=== PATIENT | male | born 1970 | race Caucasian/White ===

== ENCOUNTER 2019-06-19 12:55 | Day surgery (SDC) | payer BC ==
[~2019-06-19] VITALS: Ht 177.8 cm; Wt 91.6 kg
[~2019-06-19 12:55] MED LIST: ZYRTEC10 M3 PO
--- NOTE | 2019-06-19 14:19 | NUR ---
06/19/19 1419 Kasie Brown 1411 PT ARRIVED TO PACU TALKING TO RN, PT DENIES PAIN. PT REPROTS SMALL AMOUNT OF NAUSEA. VSS. PT RESTING BACK IN BED AND FLUIDS INCREASED. PLAN OF CARE DISCUSSED. 1418 PT FALLS BACK TO SLEEP AND SMALL AMOUNT OF SNORING NOTED.
--- NOTE | 2019-06-20 13:38 | OR ---
[facility] [address] [place], [place] [address] Signed DATE OF OPERATION: 06/19/2019 SURGEON: Robby Jordan MD PREOPERATIVE DIAGNOSIS: Colon screening. POSTOPERATIVE DIAGNOSIS: Polyps x2. PROCEDURES PERFORMED: Total colonoscopy to cecum with hot snare polypectomy x1 and cold morcellation polypectomy x1. ANESTHESIA: Intravenous sedation, fentanyl 150 mcg, Versed 9 mg. INDICATIONS: This 48-year-old white man is patient of Dr. Jacobo of [place], [place]. The patient lives in [place], [place]. The patient is referred for colon screening based on his age. He has no family history of colon cancer and no symptoms of bleeding, diarrhea, or constipation. He understands the risks of bleeding, infection, and perforation related to colonoscopy and wished to proceed. FINDINGS: The prep was excellent. Complete colonoscopy was undertaken of the cecum without question. He had 2 small polyps, one in the rectosigmoid, the other in the left colon. Both were excised completely. There were no other findings of concern. DESCRIPTION OF PROCEDURE: The patient was brought to the endoscopy suite and placed in lateral decubitus position, given intravenous sedation to the point of slurred speech and nystagmus. Digital rectal examination was normal. An Olympus video colonoscope was passed in the rectum and manipulated throughout the colon ultimately intubating the cecum itself. The ileocecal valve and appendiceal orifice were normal. The scope was withdrawn from that point and examination throughout showed no sign of abnormality into the mid descending colon, where a sessile polyp was noted, this was excised with hot snare polypectomy technique. The scope was further withdrawn. In the rectosigmoid, there was a small polyp, this was excised with cold Electronically Signed By: ROBBY JORDAN MD 06/20/19 1338 PATIENT NAME: ELISEO CROOKS OPERATIVE REPORT DATE OF : 66 REPORT #: [id number] PHYSICIAN: ROBBY JORDAN MD PCP: BELKIS JACOBO DO REPORT IS CONFIDENTIAL AND NOT TO BE RELEASED WITHOUT AUTHORIZATION [facility] [address] [place], [place] [address] Signed morcellation technique. Withdrawal of scope to the rectum showed no other abnormality. The scope was removed and the patient was taken to recovery room in good condition. CONCLUDING DIAGNOSIS: Polyps x2. PLAN: Recommend repeat colonoscopy in 3 years, sooner if clinically indicated. He will return to the ongoing care of Dr. Jacobo otherwise. MD ROGER Cleveland/TEODORAL /[id number] cc: Dr. Jacobo [facility] Copies: ~ Electronically Signed By: ROBBY JORDAN MD 06/20/19 1338 PATIENT NAME: ELISEO CROOKS OPERATIVE REPORT DATE OF : 66 REPORT #: [id number] PHYSICIAN: ROBBY JORDAN MD PCP: BELKIS JACOBO DO REPORT IS CONFIDENTIAL AND NOT TO BE RELEASED WITHOUT AUTHORIZATION
--- NOTE | 2019-06-25 13:50 | PATH ---
[facility] [address] [place], [place] [address] Signed SPECIMEN(S): A TRANSVERSE POLYP SPECIMEN(S): B SIGMOID POLYP SPECIMEN SOURCE: A. TRANSVERSE POLYP B. SIGMOID POLYP CLINICAL HISTORY: Screening. Post: Polyp x 2. MICROSCOPIC DESCRIPTION: Histologic sections of all submitted blocks are examined by light microscopy. These findings, together with the gross examination, support the pathologic diagnosis. FINAL PATHOLOGIC DIAGNOSIS: A. Mucosa, transverse colon, biopsy: - Inflammatory pseudopolyp (See comment). B. 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 - Arising in tubular adenoma. COMMENT: A Multiple levels over three slides are examined. The epithelial surface is focally denuded, and the lamina propria is expanded by small to moderate numbers of acute and chronic inflammatory cells. No adenomatous or hyperplastic change is seen. B As part of [email or web address] quality control auditor program this case has been reviewed by another member of our pathology staff. No neoplasm is left in sample for microsatellite instability testing. Results called to Dr. Sen's office (Sheri) 06/25/19 1:15 PM. KUNAL:cml:C2NR GROSS DESCRIPTION: Two specimens are received in two containers, labeled "RR." A. The specimen, labeled "RR, transverse colon polyp," is received in formalin and consists of a single 0.3 cm, rosenberg tissue fragment. The specimen is entirely submitted in cassette (A1). B. The specimen, labeled "RR, sigmoid colon polyp," is received in formalin and consists of a single 0.6 cm, brown-red, polypoid nodule. The specimen is entirely submitted in cassette (B1). AM (under the direct supervision of a pathologist) PATIENT NAME: ELISEO CROOKS PATHOLOGY DATE OF : 66 REPORT #: [id number] PHYSICIAN: CLIVE PATHOLOGY PCP: BELKIS JACOBO DO REPORT IS CONFIDENTIAL AND NOT TO BE RELEASED WITHOUT AUTHORIZATION [facility] [address] [place] [address] Signed The Gross Description was prepared using a voice recognition system. The report was reviewed for accuracy; however, sound-alike word errors, addition and/or deletions may occur. If there is any question about this report, please contact Client Services. PERFORMING LABORATORY: The technical component was performed by [address] [address] (Professor Of Chemical Engineering: Mindy Rock MD; CLIA# [id number]). Professional interpretation was performed by [facility], [address] [address] (Professor Of Chemical Engineering: Darrell Wiseman MD; CLIA# [id number]). Diagnostician: Darrell Wiseman MD Pathologist Electronically Signed 06/25/2019 Copies: ~ PATIENT NAME: RANGER,ELISEO R PATHOLOGY DATE OF : 66 REPORT #: [id number] PHYSICIAN: CLIVE SYED PCP: BELKIS JACOBO DO REPORT IS CONFIDENTIAL AND NOT TO BE RELEASED WITHOUT AUTHORIZATION
== END 2019-06-19 14:57 | disposition home or self-care (01) ==
LOC: OPS 12:55 → DS 14:00 → OPS 14:57
PROVIDERS: Surgery
PROC: 0DBL8ZZ Excision of Transverse Colon, Via Natural or Artificial Opening Endoscopic (ICD-10-PCS; 2019-06-19)
PROC: 0DBN8ZZ Excision of Sigmoid Colon, Via Natural or Artificial Opening Endoscopic (ICD-10-PCS; principal; 2019-06-19 14:00)
DX: Z12.11 Encounter for screening for malignant neoplasm of colon (principal); D12.5 Benign neoplasm of sigmoid colon; K51.40 Inflammatory polyps of colon without complications; J32.9 Chronic sinusitis, unspecified; J34.2 Deviated nasal septum; R06.83 Snoring
CPT/HCPCS: 99153; G0500; J2250; J3010; J7121

== ENCOUNTER 2019-07-19 09:36 | Inpatient (IN) | payer BC ==
[~2019-07-19] VITALS: Ht 177.8 cm; Wt 91.6 kg
--- NOTE | ~2019-07-19 | DS ---
[facility] [address] [place], [place] [address] Draft ADMISSION DATE: 07/23/2019 DISCHARGE DATE: 07/27/2019 REASON FOR ADMISSION: This 48-year-old white man is a patient of Dr. Hemalatha Perkins, and underwent screening colonoscopy by me a month prior to current admission. He was found to have two polyps, one in the sigmoid, which was excised with snare polypectomy technique showing invasive adenocarcinoma into the submucosa. He was admitted at this time to undergo sigmoid resection. PHYSICAL EXAMINATION: GENERAL: A healthy-appearing white man, in no distress. CHEST: Clear. HEART: Regular rate and rhythm without murmur. ABDOMEN: Soft without tenderness. EXTREMITIES: Without clubbing or cyanosis or edema. CEA of 1.1. HOSPITAL COURSE: On July 23, 2019, he underwent anterior resection of the colon including sigmoid and proximal rectum with side-to-end coloproctostomy. Colonoscopy was performed prior to the procedure, that did not easily showed the area of prior resection. Endo toni tattoo dye was applied to an area where a small polyp was additionally noted. Uncertain if this represented residual of the polyp excised or not. I had reviewed the slides of the resected polyp with Dr. Richardson, the pathologist, prior to operation. The operation went without problem. Postoperatively, he was begun on a clear liquid diet, maintained on intravenous medication, dominantly, Tylenol and Toradol with some amount of Dilaudid as needed. A TAP block was placed perioperatively as well. He had progressive improvement and was advanced in his diet promptly and by day of discharge, he was ambulating well and tolerating a regular diet. He has had regular bowel movements. A drain that was placed in the pelvis was removed today prior to discharge. His discharge medication will be opiate free. He wishes only to use Tylenol 1000 mg p.o. q.6 hours as needed for pain and Motrin 600 mg p.o. q.6 hours as needed for pain. PATIENT NAME: ELISEO CROOKS DISCHARGE SUMMARY DATE OF : 66 REPORT #: [id number] PHYSICIAN: ROBBY JORDAN MD PCP: BELKIS JACOBO DO REPORT IS CONFIDENTIAL AND NOT TO BE RELEASED WITHOUT AUTHORIZATION [facility] [address] [place] [id number] Draft FOLLOWUP PLANS: He is return to see me in approximately one month. Of special note, his pathology report returned showing 12 lymph nodes of the sigmoid mesentery. None of them with metastatic disease. MD ROGER Cleveland/MODL /[id number] cc: Hemalatha Perkins MD Copies: ~ PATIENT NAME: ELISEO CROOKS DISCHARGE SUMMARY DATE OF : 66 REPORT #: [id number] PHYSICIAN: ROBBY JORDAN MD PCP: BELKIS JACOBO DO REPORT IS CONFIDENTIAL AND NOT TO BE RELEASED WITHOUT AUTHORIZATION
--- NOTE | 2019-07-23 15:41 | NUR ---
07/23/19 1541 Daisy Gregory 1531 PT ARRIVED IN PACU NON RESPONSIVE TO NOXIOUS STIMULI WITH OPA IN PLACE. MELENDEZ CATHETER PRESENT ON ARRIVAL WITH RODRIGO COLORED URINE. ABD DRSG INTACT WITH SMALL AMOUNT OF DRAINAGE AND GIULIANO DRAIN.
--- NOTE | 2019-07-23 16:58 | NUR ---
PT ARRIVED TO ROOM 113 VIA HOSPITAL BED AT THIS TIME. PT ALERT AND ORIENTED. REPORT RECEIVED FROM VALET RUNNER. PT ASSESSMENT COMPLETED. PT REPORTS FEELING TIGHT AND GASSY. PT STATES "I JUST GOT TO REST HERE FOR A BIT AND LET THIS PASS" VSS. CALL LIGHT AND H2O IN REACH. NO FURTHER NEEDS OR CONCERNS VOICED.
--- NOTE | 2019-07-23 17:49 | NUR ---
PT reports pain of 6/10 to abdomen. Prn IV Toradol administered per pt request. IVF infusing as ordered. Call light and h2o in reach. No needs or concerns voiced.
--- NOTE | 2019-07-23 19:38 | NUR ---
RECEIVED REPORT FROM DAY SHIFT RN. PATIENT IS RESTING IN BED WATCHING TV VISTING WITH FAMILY. PATIENT DENIES ANY PAIN OR NAUSEA. NO NEEDS NOTED. CALL LIGHT IN REACH.
--- NOTE | 2019-07-23 20:07 | NUR ---
POST OP VITALS COMPLETED. PT WITH GAS PAINS. WILL REPORT TO PRIMARY RN. GIULIANO EMPTIED, DRESSING UNCHANGED FROM BEGINNING OF SHIFT.
--- NOTE | 2019-07-23 20:30 | NUR ---
PATIENT ASSESEMENT COMPLETED. PATIENTS RATES PAIN AT A 8/10. PRN PAIN MEDICATION GIVEN PER ORDER. IV INFUSING PER ORDER. PATIENTS EVENING MEDICATIONS GIVEN PER ORDER. PATIENTS IS PRESENT IN THE ROOM. PATIENT IS RESTING IN BED SCDS IN USE. PATIENT DENIES ANY FURTHER NEEDS. PATIENT DENIES ANY NAUSEA. CALL LIGHT IN REACH.
--- NOTE | 2019-07-23 22:20 | NUR ---
PATIENTS SCHEDULED MEDICATIONS GIVEN PER ORDER. PATIENT UP TO AMBULATE IN THE HALLWAY. PATIENT COMPLETED X3 LAPS. PATIENT IS NOW BACK IN BED RESTING. PATIENT RATES PAIN AT A 5/10. PRN MEDICATION FOR PAIN GIVEN PER ORDER. PATIENTS CHEDULED MEDICATIONS GIVEN. SCDS IN PLACE. NO FURTHER NEEDS NOTED. CALL LIGHT IN REACH.
--- NOTE | 2019-07-23 23:01 | NUR ---
beef broth and avelino vega.
--- NOTE | 2019-07-23 23:44 | NUR ---
PATIENTS SCHEDULED MEDICATIONS GIVEN PER ORDER. PATIENT RATES PAIN AT A 3/10. PATIENT DENIES THE NEED FOR ANY MEDICATION AT THIS TIME. PATIENT DENIES ANY NAUSEA. PATIENT DENIES ANY NEEDS. CALL LIGHT IN REACH.
--- NOTE | 2019-07-24 01:42 | NUR ---
PATIENT CALLED AN REQUESTED PAIN MEDICATION. PATIENT RATES PAIN AT A 9/10 IN ABD. PATIENTS ABD IS ONLY MILDLY DISTENDED WHICH IS UNCHANGED FROM THE BEGINING OF THE SHIFT. PATIENT GIVEN PRN PAIN MEDICATION PER ORDER. PATIENT DENIES ANY NAUSEA. PATIENTS VITALS TAKEN AND RECORDED. INTAKE AND OUPUT RECORDED. NO FURTHER NEEDS NOTED. CALL LIGHT IN REACH.
--- NOTE | 2019-07-24 03:49 | NUR ---
PATIENT RATES PAIN AT A 9/10. PATIENT ALSO COMPLAINS OF NAUSEA AND IS HOLDING AN EMESIS BAG. PATIENT GIVEN PRN PAIN MEDICATION AND PRN NAUSEA. PATIENT EDUCATED ON MEDICATIONS. PATIENT DENIES ANY FURTHER NEEDS. CALL LIGHT IN REACH.
--- NOTE | 2019-07-24 05:01 | NUR ---
PATIENT RATES PAIN AT A 9/10 IN HIS ABD. NO CHANGES NOTED IN DISTENTION OR BOWEL TONES. PATIENT GIVEN PRN PAIN MEDICATION. PATIENTS SCHEDULED MEDICATION GIVEN PER ORDER. IV INFUSING. NO FURTHER NEEDS NOTED. CALL LIGHT IN REACH.
--- NOTE | 2019-07-24 05:11 | NUR ---
PATIENT HAS NOT BEEN ABLE TO REST DURING THIS SHIFT. PATIENT HAS BEEN PAINFUL AND NAUSEOUS. PATIENT HAS RECEIVED PRN PAIN MEDICATION AND PRN NAUSEA MEDICATION PER ORDER. [facility] PATIENT IS ON A CLEAR LIQUID DIET. PATIENT IS ON RA. PATIENT IS A SBA. PATIENT HAS A MELENDEZ IN PLACE. PATIENT HAS GIULIANO IN LLQ THAT IS HAS SMALL AMOUNTS OF SEROSANGUIOUNS FLUID. CAROTENT HAS MID ABD INCISION THAT HAS A DRESSING IN PLACE THAT HS NOTED DRAINGE THAT HAS BEEN UNCHANGED DURING THIS SHIFT. PATIENT IS AAOX4.
--- NOTE | 2019-07-24 05:53 | NUR ---
PATIENTS VITALS TAKEN AND RECORDED. PATIENTS INTAKE AND OUPUT RECORDED. PATIENT RATES PAIN AT A 5/10. PATIENT STATES PAIN IS GEETTING BETTER. PATIENT DENIES ANY NAUSEA. PATIENTS MORNING MEDICATIONS GIVEN PER ORDER. PATIENT DENIES ANY NEEDS. CALL LIGHT IN REACH.
--- NOTE | 2019-07-24 07:20 | NUR ---
REPORT RECEIVED FROM KYLAH HERNANDEZ. PT AWAKE HE HAS BEEN ALL NIGHT. STATES HE IS A LITTLE NAUSOUS AND HAVING CRAMPING. BT HYPERACTIVE. WOULD LIKE MELENDEZ OUT. WILL CHECK ORDERS AGAIN AND CALL DR JORDAN.
--- NOTE | 2019-07-24 07:57 | NUR ---
PATIENT RESTING IN BED. PATIENT'S HANDS AND FACE CLEANED. CALL LIGHT WITHIN REACH. NO OTHER NEEDS AT THIS TIME
--- NOTE | 2019-07-24 08:56 | OR ---
[facility] [address] [place], [place] [address] Signed DATE OF OPERATION: 07/23/2019 SURGEON: Robby Jordan MD PREOPERATIVE DIAGNOSIS: Malignant sessile polyp of sigmoid with submucosal invasion. POSTOPERATIVE DIAGNOSIS: Malignant sessile polyp of sigmoid with submucosal invasion. PROCEDURES: 1. Colonoscopy beyond splenic flexure with tattoo of sigmoid polypoid area. 2. Anterior resection of colon including sigmoid and proximal rectum with side-to-end coloproctostomy. ANESTHESIA: General endotracheal; Shahla Primitivo, CIVIL ENGINEERING MANAGER, and postoperative TAP block bilateral. INDICATION: This 48-year-old white man is a patient of Dr. Hemalatha Perkins and underwent screening colonoscopy over a month ago. He was found to have two polyps, one in the sigmoid, which was excised with snare polypectomy technique, which showed invasive adenocarcinoma into the submucosa. It was generally a sessile polyp. The various options of management of malignant polyps with invasion to the submucosa were reviewed with the patient, and he opted strongly to undergo resection of the colon to allow for mesenteric dissection in the area affected. The patient and his understand the risks of operation including, but not limited to bleeding, infection, anastomotic leak, and other unforeseen complications including need for additional treatment should malignancy be found in any regional lymph nodes. Understand this, he wished to proceed. Additionally, colonoscopy was anticipated prior to resection to hopefully toni the site of prior polypectomy and decompressed the colon if any remaining bowel prep effluent that may be present. FINDINGS: On colonoscopy, the prep was quite good overall and actual scar or eschar was not identified in the colon though a polyp was noted at the sigmoid, which may be a remnant of the previous excision. This area was marked with Endomark tattoo dye. This did provide guidance as to location for resection in the operative portion of the case. Electronically Signed By: ROBBY JORDAN MD 07/24/19 0856 PATIENT NAME: ELISEO CROOKS OPERATIVE REPORT DATE OF : 66 REPORT #: [id number] PHYSICIAN: ROBBY JORDAN MD PCP: ROVERTO JACOBO DO REPORT IS CONFIDENTIAL AND NOT TO BE RELEASED WITHOUT AUTHORIZATION [facility] [address] [place], [place] [address] Signed As regard to the abdomen, he does have thick abdominal wall pannus and intraabdominal fat, but the colon was well decompressed except for air. Resection of all the sigmoid portion of the left colon and proximal to mid rectum was undertaken with wide mesenteric resection. A side-to-end coloproctostomy was accomplished as well. The liver was palpably normal. Small bowel was normal so far as could be told. DESCRIPTION OF PROCEDURE: The patient was brought to the operating room, given a general endotracheal anesthetic. On the stretcher, he was placed in a lateral position and digital rectal examination was undertaken, which was normal. Olympus video colonoscope was passed in the rectum and manipulated throughout the colon, ultimately passed and beyond the hepatic flexure. The scope was carefully withdrawn from that point and examination undertaken. He was found to have a polypoid lesion in the sigmoid, which looked like an innocuous separate polyp that either was not appreciated or somehow missed on last colonoscopy, but may represent remnant from previous adenocarcinoma. There is certainly no deep eschar or scar that was noted. This area was in the rectosigmoid as was the offending polyp with malignancy invasion into the submucosa and this area was marked with Endomark tattoo dye. Further withdrawal of scope showed no other abnormality in the rectum. The patient was returned to the supine position and transferred to the operative table. Preoperative antibiotic cefoxitin and Flagyl had been given. Sequential compression device stockings were used and heparin subcutaneously administered. The abdomen was clipped and prepared with chlorhexidine solution and draped sterilely after placement of a Brown catheter. An incision was made inferior to the umbilicus extending to above the symphysis pubis initially. His abdominal wall pannus was a bit thicker than I expected probably 3 inches or more. The abdomen was entered and there was fatty mesentery noted as well. The Endomark tattoo was quite readily visible in the rectosigmoid area. Inspection throughout the abdomen showed no sign of ascites or carcinomatosis. No palpable adenopathy or rather thickened sigmoid mesentery. A Bookwalter retractor was attached to table and small bowel was packed superiorly and laterally allowing for good visualization of the mesocolon. The white line of Toldt was mobilized with blunt electrocautery dissection, mobilizing the left colon to the midline. Dissection was carried inferiorly over the pelvic brim, area demarcated as rectum coalescence, teniae was designated as appropriate site for resection. The mesentery was scored extending deeply into the retroperitoneal space. Serial application of tonsil clamps or hemostats were undertaken to secure the vascular pedicles. The major vascular pedicles were secured doubly with 0 silk ties. A PANKAJ stapling device 75 mm in length was used to transect the mid descending colon. There was air remaining from the prior colonoscopy, which was somewhat troublesome and therefore a pursestring suture of 3-0 silk was used on the teniae libera allowed for Electronically Signed By: ROBBY JORDAN MD 07/24/19 0856 PATIENT NAME: ELISEO CROOKS OPERATIVE REPORT DATE OF : 66 REPORT #: [id number] PHYSICIAN: ROBBY JORDAN MD PCP: ROVERTO JACOBO DO REPORT IS CONFIDENTIAL AND NOT TO BE RELEASED WITHOUT AUTHORIZATION [facility] [address] [place], [place] [address] Signed decompression of the insufflated air with angiocatheter. This allowed for easier manipulation of the colon. The mesentery was divided over the sacral promontory inferiorly to the broader base of the mesorectum well beyond the sigmoid proper. Application of hemostats and silk ties was used for vascular control and some clips additionally applied to the rectal mesentery area. Again, there was no sign of palpable adenopathy and the area demarcated as appropriate for anastomosis and the mid to upper rectum was marked with a silk suture. The area was isolated and a right angle bowel clamp was applied to the upper to mid rectum with another clamp above that and the rectal area transected with curved scissors. Plans were then made for anastomosis. A side-to-end coloproctostomy was deemed most advisable. The staple line was oversewn with interrupted 3-0 silk suture. A side-to-end coloproctostomy was then undertaken with a two layer technique of interrupted 3-0 silk suture. Excellent patency to the anastomosis and viability to proximal and distal ends was noted. By then, the specimen had been opened on the back table noting the polypoid lesion either remnant or new polyp of the rectosigmoid with a wide negative margin. A generous mesentery with lymph nodes presumably was also noted. At the conclusion of the anastomosis through a left lower quadrant incision, a 7 mm flat Krishan drain was placed into the pelvis. Mesenteric defect was reapproximated with interrupted 3-0 silk suture. Irrigation was undertaken more fully after changing of gown and gloves that had followed the anastomosis itself. Palpation of the upper abdomen revealed no palpable lesions of the liver or elsewhere. Small bowel and omentum were allowed to return to a natural position anticipating closure of the abdomen. Midline fascia was reapproximated with running bidirectional #1 PDS suture. Subcutaneous tissue was copiously irrigated and skin closed with running subcuticular 3-0 Vicryl. Steri-Strips were applied as was a silver sponge dressing. Gauze was applied to the drain site and left lower quadrant and attached to bulb suction. The patient had approximately 100 mL out. The operative time including colonoscopy and resection was 3 hours or so. Sponge, needle, and counts reported as correct x3. MD ROGER Cleveland/MODL /[id number] Electronically Signed By: ROBBY JORDAN MD 07/24/19 0856 PATIENT NAME: ELISEO CROOKS OPERATIVE REPORT DATE OF : 66 REPORT #: [id number] PHYSICIAN: ROBBY JORDAN MD PCP: ROVERTO JACOBO DO REPORT IS CONFIDENTIAL AND NOT TO BE RELEASED WITHOUT AUTHORIZATION [address] [address] Signed cc: MD Roverto Petty DO Copies: ROVERTO JACOBO DO ~ Electronically Signed By: ROBBY JORDAN MD 07/24/19 0856 PATIENT NAME: ELISEO CROOKS OPERATIVE REPORT DATE OF : 66 REPORT #: [id number] PHYSICIAN: ROBBY JORDAN MD PCP: ROVERTO JACOBO DO REPORT IS CONFIDENTIAL AND NOT TO BE RELEASED WITHOUT AUTHORIZATION
--- NOTE | 2019-07-24 09:10 | NUR ---
ADMINSTERED ZOFRAN FOR SEVERE NAUSEA. OFIRMEV FOR PAIN, TRYING TO HOLD OFF ON DILAUIDID ATT. PT HAD HICCUPS AND IS NOW PAINFUL. WILL REASSESS SHORTLY.
--- NOTE | 2019-07-24 09:19 | NUR ---
REMOVED MELENDEZ PER DR ORDER. PT TOLERATED WELL AND REMOVED STICKER HIMSELF. WILL REASSESS PAIN IN 15MIN.
--- NOTE | 2019-07-24 10:07 | NUR ---
PATIENT RESTING IN BED. RN IN ROOM. VITAL SIGNS AND I&O DONE. CALL LIGHT WITHIN REACH. NO OTHER NEEDS AT THIS TIME
--- NOTE | 2019-07-24 11:03 | NUR ---
pt ambulated 4 laps [address] hallway independently. attempting to avoid gas pains. does report passing gas sometimes. GIULIANO drain emptying sanguinous drainage. linens changed while patient ambulated.
--- NOTE | 2019-07-24 11:11 | NUR ---
PT WALKED IN [place]. STATES HE DID WELL AND PAIN IS MANAGABLE NOW. WOULD LIKE TO TAKE NAP FOR A BIT.
--- NOTE | 2019-07-24 12:25 | NUR ---
In and spoke with Himanshu. He is awake and states he has been walking, trying to pass gas. Wanting to know if he can go home today. Encouraged to stay until he has had bm and is able to eat. He discussed he has LTC insurance and does not need to hurry home. Again discussed not leaving until he feels well and has met goals. States he works for the [employer], is and lives in [place]. Denies use of DME. Denies problems with SDOH.
--- NOTE | 2019-07-24 13:25 | NUR ---
PATIENT RESTING IN BED. VISITOR IN ROOM. VITAL SIGNS AND I&O DONE. CALL LIGHT WITHIN REACH. NO OTHER NEEDS AT THIS TIME
--- NOTE | 2019-07-24 13:48 | NUR ---
PT DID 3 LAPS AROUND THE DEPARTMENT WITH FAMILY. STATES HIS PAIN IS OK RIGHT NOW. SCDS HOOKED BACK UP AND WORKING AGAIN AFTER SEVERAL ERROR CODES. PT UNABLE TO VOID ATT. WILL BLADDER SCAN SHORTLY.
--- NOTE | 2019-07-24 14:22 | NUR ---
PT ALERT, ORIENTED AND SUPPORTED BY HIS FAMILY. PT IS SITTING UP IN BED, HAD GOO VISIT. PT THANKED ME FOR COMING BY, EXTENDED A BLESSING VISITOR CAME IN TO VISIT. WILL FOLLOW NEEDED
--- NOTE | 2019-07-24 14:44 | NUR ---
PT UP IN RESTROOM TRYING TO VOID. BLADDER SCANNER IN ROOM.
--- NOTE | 2019-07-24 15:14 | NUR ---
VISITED WITH PT AND HIS FAMILY MEME AND SON JOLIE. ALL APPEARED INTERESTED IN PT EDUCATION FOR HIM. WE DISCUSSED HIS PREOP DX AND HOW THAT WAS OBTAINED, THEN THE SURGERY AND HIS RECOVERY FROM SURGERY. PT STATES ALL OF THE APPROPRIATE INFORMATION, HIS OBJECTIVE IS TO RETURN TO NORMAL LIFE. PT VERY MOTIVATED TO GET OUT OF THE HOSPITAL BUT HE STATES WITHIN REASON FOR DC. PT AND FAMILY WITH NO QUESTIONS AT THIS TIME. PT PREPARING TO HAVE BLADDER SCAN. TOLD HIM I WOULD RETURN TOMORROW.
--- NOTE | 2019-07-24 15:16 | NUR ---
BLADDER SCANNED PT FOR 47ML. COULD NOT PALPATE BLADDER AND PT DENIES NEED TO VOID. STATES HE WILL GO BACK INTO RESTROOM AND NOT COME OUT UNTIL HE VOIDS. TOLD HIM WE WOULD BLADDER SCAN AGAIN AT 1600
--- NOTE | 2019-07-24 17:00 | NUR ---
Bedside report received by KYLAH Ochoa. Orders acknowledged. Assessment complete. Water refreshed. Denies further needs at this time, call light within reach.
--- NOTE | 2019-07-24 17:24 | NUR ---
PATIENT RESTING IN BED. RN IN ROOM. VITAL SIGNS AND I&O DONE. CALL LIGHT WITHIN REACH. NO OTHER NEEDS AT THIS TIME
--- NOTE | 2019-07-24 18:15 | NUR ---
Patient sitting up in bed watching tv. Patient encouraged to ambulate to ease gas pain. Denies needs at this time, call light within reach.
--- NOTE | 2019-07-24 19:30 | NUR ---
BEDSIDE REPORT RECEIVED FROM KYLAH WASHBURN. GIULIANO DRAIN INTACT, SS DRAINAGE. SHADOWING ON GIULIANO DRESSING SITE, AND MID ABD DRESSING. pt DENIES NEED FOR PRN MEDICATION AT THIS TIME, STATES "I WILL WAIT FOR THE TORADOL". SBA TO RESTROOM FOR VOID AND BACK TO BED. SCDS ON. CALL LIGHT IN REACH.
--- NOTE | 2019-07-24 20:39 | NUR ---
pt ASSESSMENT COMPLETE. RATES PAIN 7/10 IN ABDOMEN. PRN TORADOL ADMINISTERED. DENIES NAUSEA. BOWEL TONES ACTIVE X 4, ABD DISTENDED, SOFT, TENDER W PALPATION. SHADOWING UNCHANGED ON DRESSING SITES. GIULIANO DRAIN STRIPPED, EMPTIED 18 ML SANGUINOUS FLUID. UP TO RESTROOM FOR VOID. AMBULATING IN HALLWAY INDEPENDENTLY AT THIS TIME. VERBALIZES UNDERSTANDING TO USE CALL LIGHT WHEN BACK IN ROOM.
--- NOTE | 2019-07-24 22:21 | NUR ---
CHECKED ON pt. RESTING IN BED AWAKE. STATES UNABLE TO SLEEP D/T PAIN. PRN PAIN MEDICATION ADMINISTERED. 02/14 REPORTED PAIN IN ABDOMEN, CONSTANT. IVF INFUSING WNL ORDERED. CALL LIGHT IN REACH. LIGHTS OFF IN ROOM.
--- NOTE | 2019-07-25 00:47 | NUR ---
pt UP TO RESTROOM FOR VOID, SBA. BACK IN BED. RATES PAIN 3/10 IN ABDOMEN. PRN PO TYLENOL ADMINISTERED. CALL LIGHT IN REACH. SCDS ON.
--- NOTE | 2019-07-25 03:24 | NUR ---
CALL LIGHT ANSWERED. SBA TO RESTROOM FOR VOID AND BACK TO BED. ASSESSMENT COMPLETE. BOWEL TONES ACTIVE. ABD SOFT, TENDER WITH PALPATION. pt STATES PASSING GAS. DRESSINGS WITH SANGUINOUS SHADOWING UNCHANGED FROM START OF SHIFT. GIULIANO DRAIN EMPTIED 10 MLS SANGUINOUS FLUID. RATES PAIN 3/10 IN ABDOMEN. SCDS ON. CALL LIGHT IN REACH.
--- NOTE | 2019-07-25 04:50 | NUR ---
CALL LIGHT ANSWERED. NEW BAG IVF INFUSING WNL. pt RATES PAIN 4/10 IN ABDOMEN. PRN TORADOL ADMINISTERED. COFFEE PROVIDED REQUESTED. CALL LIGHT IN REACH. SCDS ON.
--- NOTE | 2019-07-25 05:09 | NUR ---
pt UP AMBULATING HALLWAY THIS SHIFT. FLATUS PRESENT. TOLERATING CLEAR LIQUID DIET, NO NAUSEA THIS SHIFT. ABD TENDER, BOWEL TONES ACTIVE, DISTENTION IMPROVED THIS SHIFT. GIULIANO DRAIN WITH 28 ML SANGUINOUS FLUID THIS SHIFT. DRESSINGS ON ABDOMEN WITH SS SHADOWING UNCHANGED. VOIDING QS. SBA. IVF INFUSING WNL THROUGHOUT SHIFT. SCDS ON.
--- NOTE | 2019-07-25 07:36 | NUR ---
0725: BEDSIDE REPORT RECIEVED FROM OLIVE MONTERO. PT RESTING IN HIS BED AND HE STATS HIS PAIN LEVEL IS "GOOD". HE DENIES ANY NEW PROBLEMS AND PER REPORT HE SLEPT WELL LAST NIGHT. CALL CRAWLEY WITHIN REACH.
--- NOTE | 2019-07-25 07:39 | NUR ---
PATIENTS BOARD UPDATED, CALL LIGHT IN REACH
--- NOTE | 2019-07-25 08:53 | NUR ---
PT AMBULATED TO THE BR AND STATES HIS ABD PAIN INCREASED TO A 5 WHICH HE STATES IS ACCEPTABLE TO HIM AT THIS TIME. PT NOW BACK TO BED AND IS WATCHING TV. ABD MIDLINE DRESSING INTACT WITH SOME OLD DRAINAGE NOTED. GIULIANO DRAIN DRESSING INTACT WITH A MODERATE AMOUT OF DRAINAGE NOTED, WILL CONTINUE TO MONITOR. GIULIANO DRAIN EMPTIED FOR 15 ML AT THIS TIME. NO S/S OF INFECTION NOTED AND THE PT STATES HE IS "GETTING BETTER". HE STATES HE IS HOPING TO HAVE HIS DIET ADVANCED. HE DENIES ANY NAUESEA AT THIS TIME.
--- NOTE | 2019-07-25 09:59 | NUR ---
PT STATES HIS ABD PAIN HAS INCREASED TO A 7/10 AND HE WAS MEDICATED ORDERED. SEE EMAR.
--- NOTE | 2019-07-25 11:04 | NUR ---
PT SLEEPING AT THIS TIME.
--- NOTE | 2019-07-25 11:15 | NUR ---
PT IS ALERT, ORIENTED AND HAS HIS AT BS. PT MENTIONED THAT HE SLEPT WELL LAST NIGHT AND SEEMED TO BE IN GOOD SPIRITS. PT STATED THT5 HE FEELS INFORMED AND UNDERSTANDS THE CARE PLAN FOR TODAY. GAVE PT A G.POST, COLORING BK AND PRAYER SHAWL. WILL FOLLOW NEEDED
--- NOTE | 2019-07-25 12:47 | NUR ---
PT RESTING IN HIS BED AND STATES HIS PAIN IS CONTROLED AT AN ACCEPTABLE LEVEL. ABD DRESSINGS REMOVED ORDERED, STER-STRIPS REMAINS TO THE MIDLINE INCISION. NO NOTED S/S OF INFECTION, PT TOLERATED WELL..
--- NOTE | 2019-07-25 14:19 | NUR ---
PT STATES HIS ABD PAIN IS NOW A 6/10 AND HE WAS MEDICATED ORDERED, SEE EMAR. PT ATE ABOUT 25% OF HIS LUNCH AND HE CONTINUES TO DENIE ANY NAUSA. HE IS STILL EATING HIS LUNCH HE STATES HE IS GOING SLOW. WILL CONTINUE TO MONITOR.
--- NOTE | 2019-07-25 15:16 | NUR ---
Pt ambulated in the halls and walked 2 laps. He has done a total of about 10 laps so far today. Pt also showered and did well. Following the most recent laps he states his pain is worse and up to a 6/10, see emar.
--- NOTE | 2019-07-25 16:13 | NUR ---
Pt resting in his bed and states his pain is much better and is now a 4/10. ABD incisions remain intact with only old drainage noted to the steri-strips and no noted s/s of infection.
--- NOTE | 2019-07-25 16:16 | NUR ---
Pt states he feels some "bloating" his abd sounds are active and he states he is passing gas "just slow". Pt instructed on the reasons for this and the importace of walking which he has been doing.
--- NOTE | 2019-07-25 16:35 | NUR ---
In and spoke with Himanshu. and son present. Feels he is doing well, has decided to not lawrence things. Happy as has he been able to void without problem, passing small amount of gas. Now on full liquids and is eating slow. Denies needs or complaints.
--- NOTE | 2019-07-25 16:36 | NUR ---
Pt ambulating in the halls with his family at this time.
--- NOTE | 2019-07-25 18:03 | NUR ---
Robert has walked about 15-20 laps today with his family. He has required several doses of tylenol and ibuprofen and a single dose of PO dilaudid with good control. His diet was advanced to regular and he ate 100% of his dinner with no nausea or new problems. His dressing was removed this shift and steri-strips remain and the site appears healthy. Dale drain remains intact and is draining without any problems.
--- NOTE | 2019-07-25 19:20 | NUR ---
SHIFT REPORT RECEIVED FROM SAPPHIRE VASQUEZ AT BEDSIDE. PT AWAKE AND RESTING IN BED. ABDOMINAL INCISION OPEN TO AIR, STERI STRIPS IN PLACE, OLD DRY SANGUINEOUS DRAINGAGE NOTED TO STERI STRIPS. GIULIANO TO LEFT LOWER QUADRANT IN PLACE, SEROSANGUINEOUS OUTPUT NOTED. WILL MONITOR. NO SIGNS OF INFECTION, PT DENIES NEEDS. CALL LIGHT IN REACH.
--- NOTE | 2019-07-25 20:45 | NUR ---
ASSESSMENT COMPLETE, SCHEDULED MEDS GIVEN (SEE EMAR). VSS, AND I&O'S COLLECTED. PT REPORTS INCREASED PAIN, PRN MOTRIN GIVEN. PT REPORTING ITCHING TO BACK, SCATTERED RED SPOTS NOTED. PT REPORTS ITCHING BEGAN FOLLOWING SHOWER AND STATES, "I THINK IT'S FROM THE SHAMPOO I USED HERE". PT DENIES SOB, DENIES DIFFICULTY BREATHING, AND DENIES SWALLOWING. HAMMER SMITH AWARE, WILL CONTINUE TO MONITOR. ABDOMINAL INCISION OPEN TO AIR WITH STERI STRIPS, NO CHANGES FROM SHIFT REPORT. BOWEL TONES ACTIVE, PT REPORTS PASSING GAS. NO FURTHER NEEDS, CALL LIGHT IN REACH.
--- NOTE | 2019-07-25 21:00 | NUR ---
PT AMBULATING INDEPENDENTLY IN HALLWAY, DENIES NEEDS.
--- NOTE | 2019-07-25 22:31 | NUR ---
PT REQUESTED MORE WATER BUT NOTHING FURTHER AT THIS TIME.
--- NOTE | 2019-07-25 23:56 | NUR ---
PRN PO DILAUDID GIVEN FOR 7/10 PAIN IN ABDOMEN AND HEAD. SCD'S PLUGGED IN PER PT REQUEST, URINAL EMPTIED. PT VERBALIZED AFTER SWITCHING INTO NEW GOWN, ITCHING TO BACK HAS RESOLVED. WILL MONITOR. NO FURTHER NEEDS, CALL LIGHT IN REACH.
--- NOTE | 2019-07-26 03:12 | NUR ---
PT RESTING IN BED WITH EYES CLOSED. RESPIRATIONS EVEN AND UNLABORED, NO DISTRESS NOTED. SCD'S ON, CALL LIGHT IN REACH.
--- NOTE | 2019-07-26 03:44 | NUR ---
ASSESSMENT COMPLETE, NO NEW CHANGES OR CONCERNS. URINAL EMPTIED. PRN TYLENOL GIVEN FOR 5/10 ABDOMINAL PAIN. ABDOMINAL INCISION OPEN TO AIR, STERI STRIPS IN PLACE. NO SIGNS OF INFECTION, WILL MONITOR. NO CHANGE IN BACK APPEARANCE, WILL MONITOR ITCHING TO BACK. NO FURTHER NEEDS, SCD'S IN PLACE. CALL LIGHT IN REACH.
--- NOTE | 2019-07-26 06:33 | NUR ---
PT HAD AN UNEVENTFUL NIGHT, SLEPT ON AND OFF. VSS, PAIN CONTROLLED WITH PRN PAIN MEDICATIONS. PT REPORTED ITCHING TO BACK FOLLOWING SHOWER ON DAYSHIFT. AMBULATES INDEPENDENTLY IN ROOM, USES CALL LIGHT APPROPERIATELY. REGULSR DIET, TOLERATING WELL. NO NAUSEA, BOWEL TONES ACTIVE AND PT REPORTS PASSING GAS. NO BM. VOIDING QS. ABDOMINAL INCISION OPEN TO AIR WITH STERI STRIPS, SITE WNL.
--- NOTE | 2019-07-26 07:28 | NUR ---
REPORT RECEIVED FROM KYLAH HENLEY. PT UP TO AMBULATE IN HALLS X3 LAPS. PT BACK TO BED, REPORTS 5/10 PAIN AND DENIES NEED FOR PAIN MEDICAITON STATING PAIN IS TOLERABLE AT THIS TIME AND HE WANTS TO WAIT FOR BREAKFAST. PT DENIES NAUSEA, REPORTS PASSING GAS. ICE WATER REFILLED. NO ADDITIONAL REQUESTS OR COMPLAINTS AT THIS TIME. CALL LIGHT WITHIN REACH.
--- NOTE | 2019-07-26 08:22 | NUR ---
MORNING ASSESSMENT AND MEDICATION DUE. PT REASING IN BED. REPORTS 5/10 PAIN AND ASKS FOR MOTRIN. SEE MAR FOR MEDICATION GIVEN. LUNG SOUNDS CLEAR. PT REACHES 2500 ON I.S. NO NEW DRAINAGE NOTED NOTED ON STERI STRIPS OF MIDLINE INCISIONS. EDGES WELL APROXIMATED. GIULIANO DRAIN REMOVED BY , 10ML OF SERIOUS ANGUINOUS DRAINGE NOTED IN DRAIN. BANDAID APPLIED. HIVES LIKE RASH OVER BACK. PT DENIES ITCHING AT THIS TIME. PT EATING BREAKFAST, NO REQUESTS OR COMPLAINTS AT THIS TIME. CALL LIGHT WITHIN REACH.
--- NOTE | 2019-07-26 09:53 | NUR ---
THIS RN TO TO ROOM TO CHECK ON PT. PT REPORTS 4/10 PAIN BUT WOULD LIKE TO TAKE TYLENOL "TO KEEP THINGS UNDER CONTROL." PT REPORTS TYELNOL USUALLY WORKS BETTER FOR HIM. ICE WATER FILLED. PT UP TO AMBULATE, INDEPENDANTYL, STEADY ON FEET. IS USED, PT REACHES 2500. NO ADDITIONAL REQUESTS OR COMPLAINTS AT THIS TIME.
--- NOTE | 2019-07-26 11:17 | NUR ---
MED REC COMPLETE
--- NOTE | 2019-07-26 12:15 | NUR ---
NOON ASSESSMENT DUE. PT REPORTS 4/10 PAIN THAT IS "JUST FINE" AND DENIES NEED FOR ADDITIONAL PAIN MEDICATION AT THIS TIME. PT EATING LUNCH AND VISITING WITH FRIEND. ASSESSMENT DONE. LUNG SOUDNS CLEAR. PT REACHES 2500 ON I.S. PT AMBULATING FREQUENTLY (LAST DONE 4 LAPS), SCD'S NOT IN PLACE AT THIS TIME RELATE TO FREQUENT AMBULATION. DRESSING SHOWS NO NEW DRAINGE WITH SMALL AMOUNT OF OLD RED DRAIANGE NOTED ON STERI STRIPS. STERI STRIPS IN TACT WITH WOUND EDGES WELL APROXIMATED. BANDAID SHOWS SMALL AMOUNT OF RED DRAINAGE OVER OLD GIULIANO SITE. NO NEW DRAINAGE NOTED. BOWEL TONES ACTIVE, PT REPORTS CONTINUING TO PASS GAS AND "I CAN FEEL IT MOVING IN THERE NOW." PT CONTINUES VISITNG WITH FRIEND NO ADDITIONAL REQUESTS OR COMPLAINTS. CALL LIGHT WITHIN REACH.
--- NOTE | 2019-07-26 14:32 | NUR ---
THIS RN TO ROOM TO CHECK ON PT. PT REPORTS 4/10 PAIN AND DENIES NEED FOR ADDITIONAL PAIN MEDICAITON STATING "I'M JUST DOZING OFF." ICE WATER REFILLED, URINAL EMPTIED. FAMILY AT BEDSIDE. NO ADDITIONAL REQUESTS OR COMPLAINTS AT THIS TIME. CALL LIGHT WITHIN REACH.
--- NOTE | 2019-07-26 14:35 | NUR ---
In and spoke with pt and . Plans on going home tomorrow. Denies needs for dc.
--- NOTE | 2019-07-26 14:45 | NUR ---
PT UP, AMBULATING IN HALLWAY WITH SON JUST HOME FROM SCHOOL. PT SLEPT WELL, MENTIONED THAT HE HOPES TO BE DC'D FRI. GOOD VISIT, WILL CONTINUE TO FOLLOW
--- NOTE | 2019-07-26 16:45 | NUR ---
AFTERNOON ASSESSMENT DUE. PT REPORTS 6 PAIN AND REQUESTS TYLENOL. SEE MAR FOR MEDICATION GIVEN. ASSESSMENT DONE. NO NEW DRINAGE FROM WOUNDS OR ON DRESSING. STERI STRIPS INTACT. EDES OF MIDLINE INCISION WELL APROXIMATED. BANDAID OVER GIULIANO SITE UNCHANGED WITH SMALL AMOUNT OF SHADOWING. PT DENIES NAUSEA WITH INCREASED PO INTAKE THIS SHIFT. PT UP TO AMBULATE X4 LAPS IN [place], INDEPENDANT WITH AMBULATION, SCD'S REMAIN OFF AT THIS TIME PT REPORTS HE WANTS TO AMBULATE AGAIN AFTER DINNER. RASH OVER BACK CONTINUES. PT DENIES ITCHING OF RASH. FAMILY AT BEDSIDE VISITING WITH FAMILY. NO ADDITIONAL REQUESTS OR COMPLAINTS AT THIS TIME. CALL LIGHT WITHIN REACH.
--- NOTE | 2019-07-26 17:18 | NUR ---
PT POST OP DAY 3 AFTER SIGMOID COLECTOMY. PT UP TO AMBULATE INDEPENDANTLY MULTIPLE TIMES THIS SHIFT. PRN TYELNOL AND MOTRIN GIVEN FOR 4-6/10 PAIN. PT TOLERATING REGULAR DIET W/O NAUSEA. PASSING GAS, NO BOWEL MOVEMENT THIS SHIFT. GIULIANO DRAIN REMOVED BY . BANDAID WITH SMALL AMOUNT OF SHADOWING IN PLACE. MID LINE INCISION SHOWS NOW NEW DRAINAGE THIS SHIFT. SMALL AMOUNT OF OLD RED DRAINAGE NOTED, EDGES WELL APROXIMATED. VOIDING QUANTITY SUFFICIENT. PT USES CALL LIGHT APPROPRITALY. PT ANTICIPATING DISCHARGE TOMORROW.
--- NOTE | 2019-07-26 18:12 | NUR ---
THIS RN TO ROOM TO CHECK ON PT. PT REPORTS ONGOING 6/10 PAIN, SEE MAR FOR MEDICAITON GIVEN. PT DENIES NAUSEA. AT BEDSIDE. CALL LIGHT WITHIN REACH. NO ADDITIONAL REQUESTS OR COMPLAINTS AT THIS TIME.
--- NOTE | 2019-07-26 18:29 | PATH ---
[facility] [address] [place], [place] [address] Signed SPECIMEN(S): A PORTION OF SIGMOID SPECIMEN(S): B RECTAL MARGIN SPECIMEN SOURCE: A. PORTION OF SIGMOID B. RECTAL MARGIN CLINICAL HISTORY: Colon ca. Sigmoid colectomy. FINAL PATHOLOGIC DIAGNOSIS: A. Colon, sigmoid, resection: - Previous polypectomy site with reparative change (tattoo ink identified, area submitted entirely). - Hyperplastic polyp (4 mm in greatest dimension). - Surgical margins with no histopathologic abnormality. - Twelve lymph nodes with no evidence of malignancy. - No residual dysplasia or carcinoma identified. B. Rectum, margin: - Rectal tissue with no histopathologic abnormality. NAL:cml:C2NR MICROSCOPIC EXAMINATION: Histologic sections of all submitted blocks are examined by light microscopy. These findings, together with the gross examination, support the pathologic diagnosis. GROSS DESCRIPTION: A. The specimen is received in a formalin-filled specimen container labeled "RR, A". An unoriented segment of large bowel is 15 cm in length and has an external diameter which averages 2.5 cm. The serosa is smooth and pink and the attached pericolic fat averages 3.5 cm. The bowel is opened longitudinally to reveal a patent lumen. Near one end is a 0.5 cm, apparent previous polypectomy site, with surrounding submucosal tattoo ink and within 1 cm is a small 0.4 cm, rosenberg sessile polyp. The remaining mucosa has the usual folds. The previous polypectomy site is approximately 3 cm from the nearest surgical margin and approximately 12 cm from the opposite margin. Sectioning through the attached pericolic fat reveals four chun, tentatively identified lymph nodes, 0.2-0.4 cm. Upon further dissection of the adipose tissue 13 possible lymph nodes are PATIENT NAME: ELISEO CROOKS PATHOLOGY DATE OF : 66 REPORT #: [id number] PHYSICIAN: CLIVE PATHOLOGY PCP: BELKIS JACOBO DO REPORT IS CONFIDENTIAL AND NOT TO BE RELEASED WITHOUT AUTHORIZATION [facility] [address] [place], [place] [address] Signed grossly identified ranging in size from 0.4 cm up to 0.6 cm in greatest dimension. Summary of sections: (A1) - nearest bowel margin (A2) - opposite bowel margin (A3) - small sessile polyp (A4 and A5) - entire previous biopsy site (A6) - four pericolic lymph nodes (A7)-seven possible lymph nodes, submitted whole (A8)-six possible lymph nodes, submitted whole. B. The specimen is received in a formalin-filled specimen container labeled "RR, B". A portion of bowel margin is 3.5 x 1.0 x 1.0 cm. The cautery roughened surgical margin is sampled tangentially and submitted en face in cassette (B1). GW (under the direct supervision of a pathologist) The Gross Description was prepared using a voice recognition system. The report was reviewed for accuracy; however, sound-alike word errors, addition and/or deletions may occur. If there is any question about this report, please contact Client Services. PERFORMING LABORATORY: The technical component was performed by [facility], [address] [place] [id number] (Child And Family Therapist: Mindy Rock MD; CLIA# [id number]). [facility], [address] [address] (Child And Family Therapist: Darrell Wiseman MD; CLIA# [id number]). Diagnostician: Federica Richardson MD Pathologist Electronically Signed 07/26/2019 Copies: ~ PATIENT NAME: ELISEO CROOKS PATHOLOGY DATE OF : 66 REPORT #: [id number] PHYSICIAN: CLIVE PATHOLOGY PCP: BELKIS JACOBO DO REPORT IS CONFIDENTIAL AND NOT TO BE RELEASED WITHOUT AUTHORIZATION
--- NOTE | 2019-07-26 19:25 | NUR ---
SHIFT REPORT RECEIVED FROM [facility] KYLAH BENITEZ AT BEDSIDE. PT AWAKE AND RESTING IN BED. ABDOMINAL INCISION OPEN TO AIR, STERI STRIPS IN PLACE WITH OLD DRY SANGUINEOUS SHADOWING NOTED. GIULIANO REMOVAL SITE TO LEFT LOWER QUADRANT COVERED WITH BANDAID, SCANT SANGUINEOUS SHADOWING NOTED, WILL MONITOR. NO NEEDS AT THIS TIME. CALL LIGHT IN REACH.
--- NOTE | 2019-07-26 21:45 | NUR ---
ASSESSMENT COMPLETE, SCHEDULED MEDDS GIVEN. VSS, PT REPORTS 6/10 PAIN IN ABDOMEN, UNABLE TO GIVEN MOTRIN OR TYLENOL AT THIS TIME, PT VERABLIZED UNDERSTANDING AND IS OKAY TO WAIT UNTIL TYLENOL IS AVAILABLE. ABDOMAINL INCISION OPEN TO AIR, STERI STRIPS IN PLACE, DRY SANGUINEOUS SHADOWING NOTED. GIULIANO REMOVAL SITE TO RIGHT LOWER QUADRANT COVERED WITH SCAANT SANGUINOEOUS SHADOWING, NO CHANGES FROM SHIFT REPORT. PT DENIES NAUSEA, REPORTS PASSING GAS. NO FURTHER NEEDS, CALL LIGHT IN REACH.
--- NOTE | 2019-07-26 22:00 | NUR ---
PT AMBULATING INDEPENDENTLY IN HALLWAY, DENIES NEEDS.
--- NOTE | 2019-07-26 23:15 | NUR ---
PRN TYLENOL GIVEN FOR 6/10 ABDOMINAL PAIN. NO FURTHER NEEDS, CALL LIGHT IN REACH.
--- NOTE | 2019-07-27 02:29 | NUR ---
PT RESTING IN BED, EYES CLOSED. NO DISTRESS NOTED, CALL LIGHT IN REACH.
--- NOTE | 2019-07-27 04:28 | NUR ---
PT RESTING IN BED WITH EYES CLOSED. RR WNL AND PT APPEARS COMFORTABLE. CALL LIGHT IN REACH. SCD'S OFF.
--- NOTE | 2019-07-27 06:14 | NUR ---
ASSESSMENT COMPLETE, VSS. PT REPORTED 5/10 PAIN, PRN MOTRIN GIVEN. ABDOMINAL INCISION OPEN TO AIR WITH STERI STRIPS, NO NEW SHADOWING NOTED. SITE WELL APPROXIMATED, NO SIGNS OF INFECTION. NO FURTHER NEEDS, CALL LIGHT IN REACH.
--- NOTE | 2019-07-27 07:30 | NUR ---
BEDSIDE HANDOFF REPORT RECEIVED FROM CLINICAL PRODUCT SPECIALIST RN. PT DENIES NEEDS AT THIS TIME.
--- NOTE | 2019-07-27 08:16 | NUR ---
PATIENT ATE HIS BREAKFAST. BRUSHED HIS TEETH AND WASHED HIS FACE.
--- NOTE | 2019-07-27 09:40 | NUR ---
PT ON ROOM AIR, LUNG SOUNDS CLEAR. PT RATING PAIN 5/10, REQUESTING TYLENOL, GIVEN. PT WITH MIDLINE INCISION, STERISTRIPS IN PLACE, OLD DRIED DRAINAGE, GIULIANO SITE COVERED WITH BANDAID. CMS INTACT, WITHOUT EDEMA. IV SALINE LOCKED. PT TOLERATING REGULAR DIET, DENIES NAUSEA, BOWEL TONES ACTIVE, PT REPORT OF BM THIS AM. DISCUSSED PLAN OF CARE, PT PLANNING TO DISCHARGE TODAY.
[2019-07-27] MEDS ORDERED: NICOTINE1 EAC1 TD (10:21)
[2019-07-27] MEDS ORDERED: IBUPROFEN600 MG PO (10:22)
[2019-07-27] MEDS ORDERED: TYLENOL EXTRA500 MG PO (10:22)
== END 2019-07-27 11:30 | disposition home or self-care (01) | DRG 331 ==
LOC: DSVR 07-23 09:55 → MS 07-23 09:55
PROVIDERS: ADMIT Surgery
PROC: 0DBP0ZZ Excision of Rectum, Open Approach (ICD-10-PCS; 2019-07-23)
PROC: 3E0H8KZ Introduction of Other Diagnostic Substance into Lower GI, Via Natural or Artificial Opening Endoscopic (ICD-10-PCS; 2019-07-23)
PROC: 0DTN0ZZ Resection of Sigmoid Colon, Open Approach (ICD-10-PCS; principal; 2019-07-23 13:00)
DX: C18.7 Malignant neoplasm of sigmoid colon (principal); Z87.891 Personal history of nicotine dependence
CPT/HCPCS: 00790; 36415; 76942; 80048; 85025; A9270; J0131; J0330; J0694; J1100; J1170; J1644; J1885; J2250; J2300; J2405; J2704; J2795; J3010; J3475; J7060; J7121

== ENCOUNTER 2020-06-30 13:01 | Day surgery (SDC) | payer BC ==
[~2020-06-30] VITALS: Ht 172.7 cm; Wt 77.3 kg
[~2020-06-30 13:01] MED LIST changes: +CLOBETASOL PROP15 G1 TOP; +CYCLOBENZAPRINE10 MG PO; +ESTRADIOL1 MG PO; +IBUPROFEN600 MG PO; +NICOTINE1 EAC1 TD; +ONDANSETRON ODT8 MG PO; +OXYCODONE HCL5 MG PO; +TYLENOL EXTRA500 MG PO
--- NOTE | 2020-06-30 15:00 | NUR ---
06/30/20 1500 Sheets,Kasie 1447 PT ARRIVED TO PACU ON 3L VIA NC, VSS. PT WAKES EASILY AND DENIES PAIN AND NAUSEA. 1450 O2 REMOVED. 1459 PT SITTING IN HIGH FOWLERS.
--- NOTE | 2020-07-01 18:00 | PATH ---
[facility] [address] [facility] [place], [place] [address] Signed SPECIMEN(S): A COLON POLYP AT 45 CM SPECIMEN(S): B COLON POLYP AT 50 CM SPECIMEN SOURCE: A. COLON POLYP AT 45 CM B. COLON POLYP AT 50 CM CLINICAL HISTORY: Colonoscopy. History of malignant polyp 2019. Postop Dx: Colon polyps x 2. MICROSCOPIC DESCRIPTION: Histologic sections of all submitted blocks are examined by light microscopy. These findings, together with the gross examination, support the pathologic diagnosis. FINAL PATHOLOGIC DIAGNOSIS: A. Colon, polyp at 45 cm, polypectomy: - Tubular adenoma. - Negative for high-grade dysplasia or malignancy. B. Colon, polyp at 50 cm, polypectomy: - Fragments of tubular adenoma. - Negative for high-grade dysplasia or malignancy. NAL:cml:C2NR GROSS DESCRIPTION: Two specimens are received in two containers, labeled "RR." A. The specimen, labeled "RR, 45 cm," and designated on the requisition "colon polyp at 45 cm," is received in formalin and consists of two rosenberg soft tissue polypoid fragments that measure 0.3-0.7 cm in greatest dimension. The specimen is entirely submitted in cassette (A1). B. The specimen, labeled "RR, 50 cm," and designated on the requisition "colon polyp at 50 cm," is received in formalin and consists of three rosenberg soft tissue polypoid fragments that measure 0.3-0.8 cm in greatest dimension. The specimen is entirely submitted in cassette (B1). AT (under the direct supervision of a pathologist) The Gross Description was prepared using a voice recognition system. The report was reviewed for accuracy; however, sound-alike word errors, addition and/or deletions may occur. If there is any question about this report, please contact Client Services. PERFORMING LABORATORY: The technical component was performed by [facility], Ramya Canseco, PATIENT NAME: ELISEO CROOKS PATHOLOGY DATE OF : 66 REPORT #: [id number] PHYSICIAN: CLIVE SYED PCP: BELKIS JACOBO DO REPORT IS CONFIDENTIAL AND NOT TO BE RELEASED WITHOUT AUTHORIZATION [facility] [address] [place], [place] [address] [place] [address] (Soap Slabber: Mindy Rock MD; CLIA# [id number]). Professional interpretation was performed by [facility], [address] [address] (CLIA# [id number]). Diagnostician: Federica Richardson MD Pathologist Electronically Signed 07/01/2020 Copies: ~ PATIENT NAME: ELISEO CROOKS PATHOLOGY DATE OF : 66 REPORT #: [id number] PHYSICIAN: INCYTE PATHOLOGY PCP: BELKIS JACOBO DO REPORT IS CONFIDENTIAL AND NOT TO BE RELEASED WITHOUT AUTHORIZATION
--- NOTE | 2020-07-02 10:51 | OR ---
[facility] [address] [place], [place] [address] Signed DATE OF OPERATION: 06/30/2020 SURGEON: Robby Jordan MD DATE OF PROCEDURE: 06/30/2020 PREOPERATIVE DIAGNOSES: 1. History of anterior resection of colon, July 2019, for malignant polyp. 2. Surveillance colonoscopy. POSTOPERATIVE DIAGNOSIS: Polyps x2, 45 and 50 cm. PROCEDURE: Total colonoscopy to cecum with cold snare polypectomy x2. ANESTHESIA: Intravenous sedation, fentanyl 150 mcg and Versed 10 mg. INDICATION: This 49-year-old white man is a patient of Dr. Roverto Jacobo at [facility] and underwent colonoscopy by il in 2018 and subsequent anterior resection of the colon in July of 2019. He had a malignant polyp that matched criteria for colonic resection. The resected specimen had no evidence of residual disease nor sign of metastatic disease to lymph nodes. He is here for surveillance colonoscopy. He is symptom free. He has no complaints of bleeding, diarrhea or constipation. FINDINGS: The prep was excellent. Complete colonoscopy was undertaken of the cecum. He had two sessile polyps, one at 45 cm, the other at 50 cm, both were excised completely with cold snare technique. The anastomosis was widely patent. There were two suture granulomas without associated bleeding at the anastomotic site. There were no other findings of concern except for a few scattered diverticula. DESCRIPTION OF PROCEDURE: The patient was brought to the endoscopy suite and placed in lateral decubitus position, given intravenous sedation to the point of slurred speech and nystagmus. Digital rectal examination was normal. An Olympus video colonoscope was passed in the rectum and manipulated throughout the colon. The anastomosis was encountered relatively soon after Electronically Signed By: ROBBY JORDAN MD 07/02/20 1051 PATIENT NAME: ELISEO CROOKS OPERATIVE REPORT DATE OF : 66 REPORT #: [id number] PHYSICIAN: ROBBY JORDAN MD PCP: ROVERTO JACOBO DO REPORT IS CONFIDENTIAL AND NOT TO BE RELEASED WITHOUT AUTHORIZATION [facility] [address] [place], [place] [address] Signed entry showing it to be a side-to-end coloproctostomy. There were two small suture granulomas noted at the anastomotic line, but no sign of stricture. The scope was manipulated ultimately to the cecum without problem. The ileocecal valve and appendiceal orifice were normal. The scope was withdrawn and approximately 50 cm from the anal verge was a rather subtle flat sessile polyp. Narrow band imaging confirmed this likely to be adenomatous. This was excised with cold snare technique completely. The specimen was passed for pathology. Further withdrawal at approximately 45 cm showed a more obvious sessile polyp, it too was excised with cold snare technique. Complete excision was accomplished. It was passed for pathology as well. A few scattered diverticula were noted in this area as well. Upon withdrawal of scope, the anastomosis was once again encountered. Two small suture granulomata in the anastomotic area were noted. They were not bleeding or worrisome in any way and left in situ. Retroflexed view of the rectum was normal. Scope was removed and the patient was taken to the recovery room in good condition. CONCLUDING DIAGNOSIS: Polyps x2. Granulomata of the anastomosis, clinically insignificant. PLAN: We will recommend repeat colonoscopy in one year given the findings. He will return to the ongoing general care of Dr. Szumski as well. MD ROGER Cleveland/MODL /[id number] cc: Roverto Jacoob DO Copies: ROVERTO JACOBO DO ~ Electronically Signed By: ROBBY JORDAN MD 07/02/20 1051 PATIENT NAME: ELISEO CROOKS OPERATIVE REPORT DATE OF : 66 REPORT #: [id number] PHYSICIAN: ROBBY JORDAN MD PCP: ROVERTO JACOBO DO REPORT IS CONFIDENTIAL AND NOT TO BE RELEASED WITHOUT AUTHORIZATION
== END 2020-06-30 15:26 | disposition home or self-care (01) ==
LOC: OPS 13:01 → DS 13:04 → OPS 14:00
PROVIDERS: ATTEND Surgery
PROC: 0DBE8ZX Excision of Large Intestine, Via Natural or Artificial Opening Endoscopic, Diagnostic (ICD-10-PCS; principal; 2020-06-30 14:00)
DX: Z12.11 Encounter for screening for malignant neoplasm of colon (principal); D12.6 Benign neoplasm of colon, unspecified; K63.89 Other specified diseases of intestine; K57.30 Diverticulosis of large intestine without perforation or abscess without bleeding; G47.00 Insomnia, unspecified; I10 Essential (primary) hypertension; R06.83 Snoring; Z79.899 Other long term (current) drug therapy; Z98.0 Intestinal bypass and anastomosis status; Z85.038 Personal history of other malignant neoplasm of large intestine
CPT/HCPCS: 99153; G0500; J2250; J3010; J7121

== ENCOUNTER 2021-09-07 07:21 | Day surgery (SDC) | payer BC ==
[~2021-09-07] VITALS: Ht 177.8 cm; Wt 90.0 kg
--- NOTE | ~2021-09-07 | OR ---
[facility] [address] [place], [place] [address] Draft DATE OF OPERATION: 09/07/2021 SURGEON: Robby Jordan MD PREOPERATIVE DIAGNOSIS: History of sigmoid resection for malignant polyps 2019. POSTOPERATIVE DIAGNOSIS: Possible small bowel polyp of rectal site of coloproctostomy; widely patent anastomosis. PROCEDURE: Total colonoscopy to cecum with cold morcellation polypectomy x1. ANESTHESIA: Intravenous sedation; fentanyl 100 mcg and Versed 9 mg. INDICATION: This 50-year-old white man is known to me from the past. He remains a patient of Dr. Jacobo in [place], [place]. In 2019, he was found to have a malignant polyp of the rectosigmoid and underwent rectosigmoid resection with anastomosis. The malignant polyp had penetrated through the muscularis mucosa. There was no evidence of metastatic disease or residual cancer. He has been getting along well since that time. He is here for surveillance colonoscopy, understand the risks of bleeding, infection, perforation. FINDINGS: The prep was excellent. Complete colonoscopy was undertaken to the cecum without question. The coloproctostomy anastomosis was widely patent. On the rectal side of the anastomosis was an area suggestive though not diagnostic of a polyp. It might represent a large granuloma. It was excised with cold morcellation technique. The remaining colon was otherwise normal. DESCRIPTION OF PROCEDURE: The patient was brought to the endoscopy suite and placed in the lateral decubitus position, given intravenous sedation to the point of slurred speech and nystagmus. Digital rectal examination was normal. Full cardiopulmonary monitoring was maintained. After satisfactory sedation, digital rectal examination was performed which was normal. An Olympus video colonoscope was passed in the rectum and manipulated throughout the colon ultimately intubating the cecum itself. The ileocecal valve and appendiceal orifice were normal. The scope was withdrawn from that point and examination throughout PATIENT NAME: ELISEO CROOKS OPERATIVE REPORT DATE OF : [birth year] REPORT #: [id number] PHYSICIAN: ROBBY JORDAN MD PCP: ROVERTO JACOBO DO REPORT IS CONFIDENTIAL AND NOT TO BE RELEASED WITHOUT AUTHORIZATION [facility] [address] [place], [place] [address] Draft showed no sign of abnormality until the area of the anastomosis. The anastomosis was widely patent, but on the rectal side of the anastomosis was an area of protuberant mucosa which was suggestive of a polyp though it may represent only granuloma or scar tissue. This was vigorously biopsied and ablated completely. The scope was further withdrawn and retroflexed view was undertaken showing no abnormality of concern. The patient was taken to the recovery room in good condition having suffered no complication. CONCLUDING DIAGNOSIS: Essentially normal colon; possible polyp on rectal side of coloproctostomy site. PLAN: Repeat colonoscopy no later than three years and as soon as one year depending on clinical findings and the patient preference. MD ROGER Cleveland/DOM /[id number] cc: Roverto Jacobo DO Copies: ROVERTO JACOBO DO ~ PATIENT NAME: ELISEO CROOKS OPERATIVE REPORT DATE OF : 66 REPORT #: [id number] PHYSICIAN: ROBBY JORDAN MD PCP: ROVERTO JACOBO DO REPORT IS CONFIDENTIAL AND NOT TO BE RELEASED WITHOUT AUTHORIZATION
--- NOTE | 2021-09-07 09:38 | NUR ---
09/07/21 0938 Daisy Gregory 0903 PT ARRIVED IN PACU AWAKE WITH NO C/O'S. ABD SOFT. 0915 AT BEDSIDE. ALL QUESTIONS ANSWERED. 919 SITTING UP IN BED SIPPING ON JUICE. 924 DRESSED. DC INSTRUCTIONS GIVEN.
--- NOTE | 2021-09-08 12:11 | PATH ---
[facility] [address] [place], [place] [address] Signed SPECIMEN(S): A COLON POLYP AT ANASTOMOSIS SPECIMEN SOURCE: A. COLON POLYP AT ANASTOMOSIS CLINICAL HISTORY: Colonoscopy with poss. biopsy. History of malignant polyp 2019. History of anterior resection 2019. Postop: Polyp at anastomosis. FINAL PATHOLOGIC DIAGNOSIS: Colon, polyp at anastomosis, polypectomy: - Fragments of colonic mucosa with focal hyperplastic mucosal changes. - Negative for dysplasia or malignancy. NAL:cml:C2NR MICROSCOPIC EXAMINATION: Histologic sections of all submitted blocks are examined by light microscopy. These findings, together with the gross examination, support the pathologic diagnosis. GROSS DESCRIPTION: The specimen, labeled "RR, polyp at anastomosis," and designated on the requisition "colon polypectomy at anastomosis," is received in formalin and consists of eight fragments of pink-rosenberg tissue (0.2-0.3 cm in greatest dimension). The specimen is submitted entirely in cassette (A1). AC (under the direct supervision of a pathologist) The Gross Description was prepared using a voice recognition system. The report was reviewed for accuracy; however, sound-alike word errors, addition and/or deletions may occur. If there is any question about this report, please contact Client Services. PERFORMING LABORATORY: The technical component was performed by [employer], [address] [place] [id number] (Head Of Marketing Analytics: Mindy Rock MD; CLIA# [id number]).[facility], [address] [address] (CLIA# [id number]). Diagnostician: Federica Richardson MD Pathologist PATIENT NAME: ELISEO CROOKS PATHOLOGY DATE OF : [birth year] REPORT #: [id number] PHYSICIAN: [facility] PCP: BELKIS JACOBO DO REPORT IS CONFIDENTIAL AND NOT TO BE RELEASED WITHOUT AUTHORIZATION [address] [address] Signed Electronically Signed 09/08/2021 Copies: ~ PATIENT NAME: ELISEO CROOKS PATHOLOGY DATE OF : 66 REPORT #: [id number] PHYSICIAN: [facility] PCP: BELKIS JACOBO DO REPORT IS CONFIDENTIAL AND NOT TO BE RELEASED WITHOUT AUTHORIZATION
== END 2021-09-07 09:26 | disposition home or self-care (01) ==
LOC: OPS 07:21 → DS 07:28 → OPS 08:30
PROVIDERS: ATTEND Surgery
PROC: 0DBE8ZZ Excision of Large Intestine, Via Natural or Artificial Opening Endoscopic (ICD-10-PCS; principal; 2021-09-07 08:30)
DX: K63.89 Other specified diseases of intestine (principal); I10 Essential (primary) hypertension; Z90.49 Acquired absence of other specified parts of digestive tract; Z85.038 Personal history of other malignant neoplasm of large intestine; Z98.0 Intestinal bypass and anastomosis status
CPT/HCPCS: 99153; G0500; J2250; J3010; J7121

== ENCOUNTER 2024-12-28 07:05 | Day surgery (SDC) | payer BC ==
[~2024-12-28] VITALS: Ht 177.8 cm; Wt 84.5 kg
[~2024-12-28 07:05] MED LIST changes: +DAILY VALUE1 EACH PO; +IBLOOD GLUCOSE TEST STRIP 1 EA TEST VI PRN; +LACTATED RINGER'S 1,000 ML IV SCH; +LIDOCAINE HCL 1% 5 ML SDV INJ ONE; +MAGNESIUM100 MG PO; +MIDAZOLAM HCL 5 MG/5 ML VIAL IV PRN; +VITAMIN C100 MG PO; +VITAMIN D325 MCG PO; +fentaNYL citrate 100 MCG/2 ML VIAL IV PRN
[2024-12-28 07:25] VITALS: BP 131/91
[2024-12-28] MEDS ORDERED: MIDAZOLAM HCL 5 MG/5 ML VIAL ONE (08:05)
[2024-12-28] MEDS ORDERED: fentaNYL citrate 100 MCG/2 ML VIAL ONE (08:06)
--- NOTE | 2024-12-28 09:03 | NUR ---
12/28/24 0903 Asia Chauhan 0851- PT PRESENTS TO PACU, LEFT LATERAL POSITION. PT AWAKE BUT DROWSY, BREATHING EVEN AND NON LABORED. O2 AT 3L PER NC. ABD FLAT, BUT FIRM. ENCOURAGED TO PASS GAS. PT REPORTS FEELING 5/10 GAS PAINS, NO NAUSEA. LR INFUSING TO RH IV. ALL MONITORS IN PLACE. 0903- PT FALLS TO SLEEP SHORTLY, BUT WAKES ON OWN. DR JORDAN AT BEDSIDE TO DISCUSS FINDINGS.
[2024-12-28 09:17] VITALS: BP 129/90
--- NOTE | 2025-01-01 11:00 | OR ---
[facility] [address] [place], [place] [address] Signed DATE OF OPERATION: 12/28/2024 SURGEON: Robby Jordan MD PREOPERATIVE DIAGNOSIS: History of low anterior resection for malignant polyp of rectum 2019. POSTOPERATIVE DIAGNOSIS: Small polyp, transverse colon (excised). PROCEDURE: Total colonoscopy to cecum with cold morcellation polypectomy x1. ANESTHESIA: Intravenous sedation fentanyl 100 mcg and Versed 7 mg. INDICATION: This 54-year-old white man is a patient of Dr. Riley in [place], [place]. He underwent colon resection (low anterior resection) by il in 2018 for malignant polyp with invasion into the stalk of the polyp. His last colonoscopy was 2021. Biopsy at that time showed hyperplasia of the anastomosis, but no sign of actual dysplasia or adenomatous change. His original malignant polyp had penetrated through the muscularis mucosa. Final resection showed no residual tumor or lymphadenopathy. He is currently here to undergo surveillance colonoscopy, understand the risk of bleeding, infection, and perforation. His last colonoscopy was three years ago in 2021. FINDINGS: The prep was excellent. Complete colonoscopy was undertaken to the cecum without question. He had a small adenomatous appearing polyp of the transverse colon which was excised. There were no other findings of concern and the anastomosis was widely patent. DESCRIPTION OF PROCEDURE: The patient was brought to the endoscopy suite and placed in lateral decubitus position, given intravenous sedation to the point of slurred speech and nystagmus. Digital rectal examination was normal. An Olympus video colonoscope was passed in the rectum and manipulated throughout the colon ultimately intubating the cecum itself. The ileocecal valve and appendiceal orifice were normal. The scope was withdrawn from that point and examination showed no sign of abnormality into the transverse colon where a small adenomatous polyp was noted, this was excised with cold morcellation technique. Further withdrawal showed no other abnormality and anastomosis was noted to be widely patent. Electronically Signed By: ROBBY JORDAN MD 01/01/25 1100 PATIENT NAME: ELISEO CROOKS OPERATIVE REPORT DATE OF : 66 REPORT #: [id number] PHYSICIAN: ROBBY JORDAN MD PCP: BOB RILEY MD REPORT IS CONFIDENTIAL AND NOT TO BE RELEASED WITHOUT AUTHORIZATION [facility] [address] [facility] [place] [place] [address] Signed Retroflexed view was normal. Scope was removed. The patient was taken to the recovery room in good condition. CONCLUDING DIAGNOSIS: Small polyp x1. PLAN: Recommend repeat colonoscopy in 2 to 3 years, sooner if symptoms should develop. He will return to the ongoing care of Dr. Riley otherwise. MD ROGER [place]/MODL /[id number] cc: Dr. Riley Copies: ~ Electronically Signed By: ROBBY JORDAN MD 01/01/25 1100 PATIENT NAME: ELISEO CROOKS OPERATIVE REPORT DATE OF : 66 REPORT #: [id number] PHYSICIAN: ROBBY JORDAN MD PCP: BOB RILEY MD REPORT IS CONFIDENTIAL AND NOT TO BE RELEASED WITHOUT AUTHORIZATION
--- NOTE | 2025-01-02 17:34 | PATH ---
[facility] [address] [facility] [place] [address] Signed SPECIMEN(S): A TRANSVERSE COLON POLYP SPECIMEN SOURCE: A. TRANSVERSE COLON POLYP CLINICAL HISTORY: History of colon cancer (2019) with low anterior resection, polyp FINAL PATHOLOGIC DIAGNOSIS: Transverse colon polyp: - Polypoid colonic mucosa with slight adenomatous change (one fragment). JVR:clv MICROSCOPIC EXAMINATION: Histologic sections of all submitted blocks are examined by light microscopy. These findings, together with the gross examination, support the pathologic diagnosis. GROSS DESCRIPTION: The specimen, labeled and designated ", transverse colon polyp," is received in formalin and consists of three rosenberg soft tissue fragments, ranging from 0.1-0.3 cm. Entirely submitted in (A1). VB (under the direct supervision of a pathologist) The Gross Description was prepared using a voice recognition system. The report was reviewed for accuracy; however, sound-alike word errors, addition and/or deletions may occur. If there is any question about this report, please contact Client Services. PERFORMING LABORATORY: Technical component was performed by [employer], [address] [place] [id number] (CLIA# [id number]). Professional interpretation was performed by [facility] [facility], [address] [place] [id number] (CLIA#: [id number]). Diagnostician: Wilmar Townsend MD Pathologist Electronically Signed 01/02/2025 Copies: PATIENT NAME: LEISEO CROOKS PATHOLOGY DATE OF : 66 REPORT #: [id number] PHYSICIAN: [facility] PCP: BOB GUILLEN MD REPORT IS CONFIDENTIAL AND NOT TO BE RELEASED WITHOUT AUTHORIZATION [address] [address] Signed ~ PATIENT NAME: ELISEO CROOKS PATHOLOGY DATE OF : 66 REPORT #: [id number] PHYSICIAN: [facility] PCP: BOB GUILLEN MD REPORT IS CONFIDENTIAL AND NOT TO BE RELEASED WITHOUT AUTHORIZATION
== END 2024-12-28 09:25 | disposition home or self-care (01) ==
LOC: DS 07:05
PROVIDERS: ATTEND Surgery
PROC: 0DBL8ZZ Excision of Transverse Colon, Via Natural or Artificial Opening Endoscopic (ICD-10-PCS; principal; 2024-12-28 08:05)
DX: Z12.11 Encounter for screening for malignant neoplasm of colon (principal); D12.3 Benign neoplasm of transverse colon; K63.5 Polyp of colon; I10 Essential (primary) hypertension
CPT/HCPCS: 99153; G0500; J2250; J3010; J7121